=== PATIENT | male | born 1945 | race Caucasian/White ===

== ENCOUNTER → 2024-02-28 15:41 | Outpatient (REF) | payer MEDICARE, OTHER, SELFPAY ==
[2024-02-28 17:21] LABS: PSA, Total - Diagnostic < 0.06 ng/ml (0.0-4.0)
[2024-02-28 17:22] LABS: Testosterone, Total 10.5 ng/dl (72-623)
== END ==
LOC: REG 15:41
PROVIDERS: ATTENDING PHYSICIAN Radiology Radiation Oncology; FAMILY PHYSICIAN Internal Medicine
DX: C61 Malignant neoplasm of prostate (principal)
CPT/HCPCS: 36415; 84153; 84403

== ENCOUNTER → 2024-08-15 16:09 | Outpatient (REF) | payer MEDICARE, OTHER, SELFPAY ==
[2024-08-15 17:37] LABS: PSA, Total - Diagnostic < 0.06 ng/ml (0.0-4.0)
[2024-08-15 17:39] LABS: Testosterone, Total 6.8 ng/dl (72-623)
== END ==
LOC: REG 16:09
PROVIDERS: ATTENDING PHYSICIAN Radiology Radiation Oncology; FAMILY PHYSICIAN Internal Medicine
DX: C61 Malignant neoplasm of prostate (principal)
CPT/HCPCS: 36415; 84153; 84403

== ENCOUNTER → 2024-08-26 07:48 | Outpatient (REF) | payer MEDICARE, OTHER, SELFPAY ==
[2024-08-26 09:00] LABS: Urine Albumin Negative (Neg - Trace); Urine Bilirubin Negative (Negative); Urine Character Clear (Clear); Urine Color Yellow; Urine Glucose Negative (Negative); Urine Ketone Negative (Negative); Urine Leukocyte Negative (Negative); Urine Nitrite Negative (Negative); Urine Occult Blood Negative (Negative); Urine Urobilinogen Negative (Neg - 1+)
== END ==
LOC: REG 07:48
PROVIDERS: ATTENDING PHYSICIAN Radiology Radiation Oncology; FAMILY PHYSICIAN Internal Medicine
DX: Z87.448 Personal history of other diseases of urinary system (principal)
CPT/HCPCS: 81003

== ENCOUNTER → 2024-10-30 07:34 | Outpatient (REF) | payer MEDICARE, OTHER, SELFPAY | LOC: HWRAD 07:34 | PROVIDERS: ATTENDING PHYSICIAN Urology; FAMILY PHYSICIAN Internal Medicine | DX: N20.0 Calculus of kidney (principal); N28.1 Cyst of kidney, acquired | CPT/HCPCS: 76775 ==

== ENCOUNTER → 2025-02-27 13:25 | Outpatient (REF) | payer MEDICARE, OTHER, SELFPAY ==
[2025-02-27 14:44] LABS: Urine Albumin Negative (Neg - Trace); Urine Bilirubin Negative (Negative); Urine Character Clear (Clear); Urine Color Yellow; Urine Glucose Negative (Negative); Urine Ketone Negative (Negative); Urine Leukocyte Negative (Negative); Urine Nitrite Negative (Negative); Urine Occult Blood Negative (Negative); Urine Specific Gravity 1.015 (<1.030); Urine Urobilinogen Negative (Neg - 1+); Urine pH 6.5 (5.0-9.0)
[2025-02-27 15:51] LABS: PSA, Total - Diagnostic < 0.06 ng/ml (0.0-4.0)
== END ==
LOC: REG 13:25
PROVIDERS: ATTENDING PHYSICIAN Radiology Radiation Oncology
DX: C61 Malignant neoplasm of prostate (principal); Z87.448 Personal history of other diseases of urinary system
CPT/HCPCS: 36415; 81003; 84153; 84403

== ENCOUNTER → 2025-08-31 16:53 | Outpatient (REF) | payer MEDICARE, OTHER, SELFPAY ==
[2025-08-31 19:37] LABS: PSA, Total - Diagnostic < 0.06 ng/ml (0.0-4.0)
== END ==
LOC: REG 16:53
PROVIDERS: ATTENDING PHYSICIAN Radiology Radiation Oncology; FAMILY PHYSICIAN Internal Medicine
DX: C61 Malignant neoplasm of prostate (principal)
CPT/HCPCS: 36415; 84153; 84403

== ENCOUNTER → 2025-10-08 07:50 | Outpatient (REF) | payer MEDICARE, OTHER, SELFPAY ==
[2025-10-08 09:35] LABS: Hematocrit 41.9 % (39.0-52.0); Hemoglobin 13.6 g/dL (13.0-18.0); Mean Corp Hgb Conc. 32.5 g/dL (33.0-37.0); Mean Corpuscular Volume 92.7 fL (80.0-94.0); Nucleated Red Blood Cells % 0 % (-); Platelet Count 257 10^3/uL (130-400); Red Cell Dist. Width 14.4 % (11.5-14.5)
[2025-10-08 10:36] LABS: ALT (SGPT) 20 U/L (0-50); AST (SGOT) 22 U/L (17-59); Albumin 4.4 g/dl (3.5-5.0); Alkaline Phosphatase 49 U/L (38-126); Blood Urea Nitrogen 23 mg/dl (9-20); Calcium 9.4 mg/dl (8.4-10.2); Carbon Dioxide 29 mmol/L (22-30); Chloride 99 mmol/L (98-107); Glucose 88 mg/dl (70-99); HDL Cholesterol 65 mg/dl; LDL Cholesterol, Calculated 130 mg/dl; Potassium 4.4 mmol/L (3.5-5.1); Sodium 133 mmol/L (135-145); Total Protein 7.2 g/dl (6.3-8.2); Very Low Density Lipoprotein 15 mg/dl (0-30); eGFR > 60.00
== END ==
LOC: REG 07:50
PROVIDERS: ATTENDING PHYSICIAN Physician Assistant; FAMILY PHYSICIAN Internal Medicine
DX: Z85.528 Personal history of other malignant neoplasm of kidney (principal); Z87.442 Personal history of urinary calculi; C61 Malignant neoplasm of prostate; R35.0 Frequency of micturition; N40.1 Benign prostatic hyperplasia with lower urinary tract symptoms; Z13.220 Encounter for screening for lipoid disorders; E78.2 Mixed hyperlipidemia
CPT/HCPCS: 36415; 80053; 80061; 85025

== ENCOUNTER → 2025-11-06 14:28 | Outpatient (REF) | payer MEDICARE, OTHER, SELFPAY | LOC: HWRAD 14:28 | PROVIDERS: ATTENDING PHYSICIAN Physician Assistant; FAMILY PHYSICIAN Internal Medicine | DX: N28.1 Cyst of kidney, acquired (principal); N20.0 Calculus of kidney; Z90.5 Acquired absence of kidney; C61 Malignant neoplasm of prostate; R39.9 Unspecified symptoms and signs involving the genitourinary system | CPT/HCPCS: 76775 ==